=== PATIENT | male | born 1950 | race Caucasian/White ===

== ENCOUNTER 2017-06-02 12:11 | Outpatient (CLI) | payer OTHER ==
--- NOTE | 2017-06-02 13:08 | DIAGNOSTIC IMAGING REPORT ---
PROCEDURE: XR BARIUM SWALLOW INDICATION: DYSPHAGIA TECHNIQUE: Real time fluoroscopy was performed on the esophagus. Total fluoro time 2.7 minutes. Cumulative dose 2342.85 mGy. 164 saved fluoroscopic images including cine imaging and last image hold screen capture images. COMPARISON: None. FINDINGS: The swallowing mechanism is normal without aspiration. Images of the pharynx and cervical esophagus are negative for diverticulum or obvious mass. The esophagus is normal in course, contour, and caliber. No hiatal hernia in the upright position. Tiny hiatal hernia in the recumbent position. Esophageal motility in the upright position demonstrates occasional minimal diffuse tertiary contractions. In the recumbent position, normal motility. There was trace amount of inducible gastroesophageal reflux in the recumbent position. IMPRESSION: 1. Very small hiatal hernia in the recumbent position only. 2. Trace amount of inducible gastroesophageal reflux in the recumbent position, unlikely to be the cause the patient's symptoms. 3. No obvious mass, stricture, or diverticulum to explain the patient's proximal esophageal/pharyngeal symptoms.
== END 2017-06-02 23:00 | disposition home or self-care (01) ==
LOC: XR SRH 12:11
DX: K44.9 Diaphragmatic hernia without obstruction or gangrene (principal)